=== PATIENT | female | born 1940 | race African-American/Black ===

== ENCOUNTER 2017-10-30 17:27 | Emergency (ER) | payer OTHER ==
[~2017-10-30] VITALS: Ht 154.9 cm; Wt 54.4 kg
--- NOTE | 2017-10-30 17:49 | NUR ---
PT BIB RA FROM FOR MORE ALTERED THAN USUAL PER FAMILY WHO WAS VISITING. PT IS NON-VERBAL, WHICH IS BASELINE. LEGS CONTRACTED. VSS. NAD NOTED. RESP EVEN UNLABORED. SKIN WARM NONDIAPHORETIC. IN ER BED 04.
[2017-10-30 17:58] LABS: BASOPHILS % (AUTO) 0.1 % (0.0-2.0); HEMATOCRIT 37 % (33-45); HEMOGLOBIN 12.3 g/dL (11.5-14.8); LYMPHOCYTES # (AUTO) 0.3 /CMM (0.8-4.8); LYMPHOCYTES % (AUTO) 5.5 % (20.0-44.0); MEAN CORPUSCULAR HEMOGLOBIN 32 PG (26.0-33.0); MEAN CORPUSCULAR HGB CONC 34 g/dl (31.0-36.0); MEAN CORPUSCULAR VOLUME 96 fL (82-100); MONOCYTES % (AUTO) 0.7 % (2.0-12.0); NEUTROPHILS % (AUTO) 93.7 % (43.0-81.0); PLATELET COUNT (AUTO) 204 /CMM (150-450); RDW COEFFICIENT OF VARIATION 15.7 (11.5-15.0); WHITE BLOOD COUNT (AUTO) 5.3 K/uL (4.3-11.0)
--- NOTE | 2017-10-30 17:59 | NUR ---
ELENITA LINARES (DAUGHTER W/ POA) [phone]
[2017-10-30 18:07] LABS: CALCIUM, SERUM 9.3 mg/dL (8.5-10.1); CARBON DIOXIDE 28 mmol/L (21-32); CHLORIDE 96 mmol/L (98-107); GLUCOSE 89 mg/dL (74-106); POTASSIUM 4.9 mmol/L (3.5-5.1); SODIUM SERUM 133 mmol/L (136-145); UREA NITROGEN, BLOOD 51 mg/dL (7-18)
[2017-10-30 18:08] LABS: INR 1.06 (0.87-1.13)
[2017-10-30 18:12] LABS: ALANINE AMINOTRANSFERASE 58 U/L (12-78); ALBUMIN 3.1 g/dL (3.4-5.0); ALKALINE PHOSPHATASE 74 U/L (46-116); ASPARTATE AMINOTRANSFERASE 89 U/L (15-37); BILIRUBIN,DIRECT 0.2 mg/dL (0.0-0.2); BILIRUBIN,TOTAL 0.8 mg/dL (0.2-1.0); TOTAL PROTEIN, SERUM 6.9 g/dL (6.4-8.2)
[2017-10-30 18:14] LABS: TROPONIN I < 0.017 ng/mL (0.00-0.056)
--- NOTE | 2017-10-30 18:29 | NUR ---
[facility],EXPECTING A CALL BACK FROM A KNIGHTSEN
[2017-10-30] MEDS ORDERED: IV NS 0.9% 1,000 ML BAG IV ONE (18:30)
[2017-10-30 18:31] LABS: APPEARANCE,URINE Cloudy (CLEAR); BILIRUBIN,URINE Negative (NEGATIVE); BLOOD, URINE Trace-lysed Ery/uL (NEGATIVE); COLOR,URINE Yellow (YELLOW); KETONES,URINE Negative (NEGATIVE); LEUKOCYTE ESTERASE ,URINE Trace (NEGATIVE); NITRITE, URINE Negative (NEGATIVE); PROTEIN,URINE Negative (NEGATIVE); UGLUCOSE Negative (NEGATIVE); UROBILINOGEN,URINE 0.2 EU/dL (0.2)
[2017-10-30 19:08] LABS: BACTERIA,URINE Few /HPF (None Seen); RBC,URINE 2-3/HPF /HPF (0-2); SQUAMOUS EPITHELIAL CELL,UR Rare /HPF (None Seen); URINE AMORPHOUS URATE Moderate /HPF (None Seen)
--- NOTE | 2017-10-30 19:12 | NUR ---
SPOKE TO [facility] ER ADMITTING MD DR. MACIEL REPORT [phone] ETA BLS 8PM
--- NOTE | 2017-10-30 19:20 | NUR ---
PT'S FAMILY MEMBER IS FEEDING PT SM AMOUNTS OF APPLE SAUCE. HOB ELEVATED.
--- NOTE | 2017-10-30 19:43 | NUR ---
PT WAS REPOSITIONED AND PILLOW PLACED UNDER LEFT SIDE. PT NODDED THAT SHE WAS MORE COMFORTABLE.
--- NOTE | 2017-10-30 19:54 | NUR ---
CALLING [facility]IL[facility]ALES FOR REPORT.
[2017-10-30 19:57] VITALS: BP 113/53
--- NOTE | 2017-10-30 19:58 | NUR ---
REPORT GIVEN TO LEONARD ZAFAR AT [facility].
--- NOTE | 2017-10-30 20:07 | NUR ---
PT LEFT VIA AMBULANCE TO [facility].
== END 2017-10-30 20:06 | disposition home or self-care (01) ==
LOC: ER 17:29
DX: R62.7 Adult failure to thrive (principal); E86.0 Dehydration; G93.40 Encephalopathy, unspecified; F03.90 Unspecified dementia, unspecified severity, without behavioral disturbance, psychotic disturbance, mood disturbance, and anxiety; I10 Essential (primary) hypertension; E11.9 Type 2 diabetes mellitus without complications
CPT/HCPCS: 36415; 80048-TC; 80076-TC; 81000-TC; 83605-TC; 84484-TC; 85025-TC; 85730-TC; 87040-TC; A4606; J7030; Z7610